=== PATIENT | female | born 1965 | race Hispanic/Latino ===

== ENCOUNTER 2021-03-21 11:30 | Emergency (ER) | payer BC ==
[~2021-03-21] VITALS: Ht 149.9 cm; Wt 88.5 kg
== END 2021-03-21 12:16 | disposition home or self-care (01) ==
LOC: ER 11:35
DX: L02.211 Cutaneous abscess of abdominal wall (principal); I10 Essential (primary) hypertension; E11.9 Type 2 diabetes mellitus without complications
CPT/HCPCS: 99282